=== PATIENT | male | born 1955 | race Two or more races ===

== ENCOUNTER 2019-07-16 09:00 | Emergency (ER) | payer OTHER ==
[~2019-07-16] VITALS: Ht 167.6 cm; Wt 81.6 kg
[2019-07-16] MEDS ORDERED: TOPROL XL50 M1 (09:10)
[2019-07-16] MEDS ORDERED: TENORMIN50 M1 (09:10)
[2019-07-16] MEDS ORDERED: AMOX-CLAV 875-1 EACH PO (11:13)
[2019-07-16] MEDS ORDERED: KETO10TA2 PO (11:13)
[2019-07-16] MEDS ORDERED: CLOTRIMAZOLE/BE15 GM TOP (11:13)
== END 2019-07-16 11:54 | disposition home or self-care (01) ==
LOC: ER 09:00
DX: L03.115 Cellulitis of right lower limb (principal)